=== PATIENT | female | born 1995 | race Caucasian/White ===

== ENCOUNTER → 2017-12-25 08:53 | Outpatient (CLI) | payer OTHER, SELFPAY ==
[2017-12-30 08:58] LABS: HPV APTIMA, High Risk Negative (Negative)
== END ==
PROVIDERS: Family Provider Family Medicine; PCP Family Medicine; Visit Provider Obstetrics & Gynecology
DX: Z12.4 Encounter for screening for malignant neoplasm of cervix (principal)
CPT/HCPCS: 88175; G0145

== ENCOUNTER → 2019-01-06 16:00 | Outpatient (CLI) | payer OTHER, SELFPAY ==
[2019-01-09 10:57] LABS: HPV APTIMA, High Risk Negative (Negative)
== END ==
PROVIDERS: Visit Provider Obstetrics & Gynecology
DX: Z12.4 Encounter for screening for malignant neoplasm of cervix (principal)
CPT/HCPCS: 88175; G0145

== ENCOUNTER → 2019-11-03 16:00 | Outpatient (CLI) | payer OTHER, SELFPAY ==
[2017-11-08 19:38] VITALS: BMI 34.7
[2019-11-04 12:45] LABS: Chlamydia Trachomatis by PCR Negative (Negative); Neisserai gonorrhoeae by PCR Negative (Negative); Probe Check PASS; Sample Adequacy Control PASS; Specimen Processing Control PASS
== END ==
PROVIDERS: Visit Provider Obstetrics & Gynecology
DX: Z11.3 Encounter for screening for infections with a predominantly sexual mode of transmission (principal)
CPT/HCPCS: 87491; 87591

== ENCOUNTER → 2020-06-07 15:40 | Outpatient (CLI) | payer OTHER, SELFPAY ==
[2017-11-08 19:38] VITALS: BMI 34.7
== END ==
PROVIDERS: Visit Provider Obstetrics & Gynecology
DX: Z36.85 Encounter for antenatal screening for Streptococcus B (principal)
CPT/HCPCS: 87081

== ENCOUNTER 2020-06-19 02:07 | Inpatient (IN) | payer OTHER, SELFPAY ==
[2017-11-08 19:38] VITALS: BMI 34.7
[2020-06-19] VITALS (42 sets, daily range): BP systolic 95–137; BP diastolic 53–79; PULSE 71–124; RESP 16–18; TEMP 36.3–37.1; O2SAT 96–100; BMI 36.3
[2020-06-19 02:09] LABS: ROM Internal Control Test YES-OK TO RESULT pt. (Internal QC); ROM Patient Test POSITIVE (Negative)
[2020-06-19] MEDS: Lactated Ringers 500 ML 999 ML IV (02:37)
[2020-06-19 03:01] LABS: Absolute Lymphocyte Count 2.33 X10^3/uL (0.83-4.51); Absolute Neutrophil Count 12.2 X10^3/uL (2.0-7.7); Basophil# 0.05 X10^3/uL; Basophil% 0.3 % (0-1); Eosinophil# 0.14 X10^3/uL; Eosinophils% 0.9 % (0-5); Hematocrit 36.8 % (37-47); Hemoglobin 11.3 g/dL (12.0-15.0); Lymphocyte # 2.33 X10^3/ul (4.0); Lymphocyte % 14.8 % (19-41); Mean Corp Hgb Conc 30.7 g/dL (32-36); Mean Corpuscular Hgb 24.9 pg (27.0-32.0); Mean Corpuscular Volume 81.1 fL (81-99); Mean Platelet Vol. 9.6 fl (6.2-12.0); Monocyte# 0.93 X10^3/uL; Monocyte% 5.9 % (0-10); NRBC Flagged by Analyzer 0 % (0-5); Neutrophil # 12.18 X10^3/uL (2.7-7.7); Neutrophil % 77.4 % (47-70); Platelet Count 298 K/mm3 (150-450); RBC Distribution Width CV 14.2 % (11.6-14.6); RBC Distribution Width SD 40.9 fl (35.1-43.9); Red Blood Count 4.54 M/mm3 (4.2-5.4); White Blood Count 15.7 K/mm3 (4.4-11.0)
[2020-06-19] MEDS: Lactated Ringers 1,000 ML 200 ML IV ×2 (03:07→08:18)
[2020-06-19] MEDS: fentaNYL-bupivacaine (epidural) 100 ML BAG EPIDURAL ×2 (03:29→08:17)
[2020-06-19] MEDS: Ondansetron 4 MG/2 ML Vial IV (03:54)
[2020-06-19] MEDS: Oxytocin 30 units/NS 500 ml 30 UNITS/500 ML IV.SOLN IV (06:57)
--- NOTE | 2020-06-19 09:04 | PCM.HPOB.BLA ---
History and Physical Date of Admission: 06/19/20 CC: leakage of fluid Subjective: 25yo at 38wk/4d arrives with leakage of clear fluid around midnight. Denies VB, CP, SOB, LENTZ, Visual changes, RUQ pain. States good movement. PRIOR DELIVERY HISTORY DEL DATE GEST LAB WT LB WT OZ TYPE ANES LABOR TX Nov 14 41 18 7 0 Vag Epidural No PAST #1: Date of :.................. 11/09/17 Gestation Weeks:................ 41 Length of labor(hours):......... 18 Sex:............................ M Weight-lbs:............... 7 Weight-oz:................ 0 Type of Delivery:............... Vag Type of Anesthesia:............. Epidural Place of Delivery:.............. [facility] Treatment of Labor?:.... 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 Illicit Drug Use - None Sexual Activity - Spouse-Sig Other Name - Luis Davis Spouse-Sig Other Occupation - [employer] Children Name(s) - Alistair(18) REVIEW OF SYSTEMS: GENERAL - Denies fever, or chills SKIN - Denies rash, new skin lesions, or change in moles EYES - Denies blurred vision, or change in visual acuity EARS - Denies ear pain, or difficulty hearing NOSE - Denies nasal congestion, discharge, or bleeding MOUTH - Denies sore throat, or difficulty swallowing NECK - Denies pain or swelling RESPIRATORY - Denies shortness of breath, cough, wheezing CARDIOVASCULAR - Denies palpitations, chest pain, orthopnea, PND, peripheral edema, syncope or claudication GASTROINTESTINAL - Denies nausea, vomiting, diarrhea, constipation, Denies abdominal pain, melena and or bright red blood GENITOURINARY - Denies dysuria, frequency of urination, urgency, or hesitancy MUSCULOSKELETAL - Denies joint or muscle pain, or back pain NEUROLOGICAL - Denies localized numbness, weakness, or tingling PSYCHIATRIC - Denies depression, anxiety, substance abuse or suicide attempts ENDOCRINE - Denies heat or cold intolerance, weight loss or gain, increasing thirst HEMATO-IMMUNOLOGIC - Denies easy bruising, bleeding, oral ulcerations or recurrent infections PHYSICAL EXAMINATION General Appearence: 25 yo female in no acute distress Vital Signs: AF, VSS Heart: RRR without rubs or gallops Lungs: CTA x 2 Breasts: deferred Abdomen: gravid Pelvis: Cervix: c/th/h per nursing Presentation: cephalic Fetus: Movement: present Heart: present Labs for : RICHARD DAVIS CULTURE, GROUP B STREPTOCOCCUS 06/07/20 NOTE Original Ordering Provider: Kami Coker Comments: VAGINAL/RECTAL NICKY Culture Group B Beta Streptococcus is not isolated. GLUCOSE TOLERANCE-3 HOUR 04/11/20 NOTE Original Ordering Provider: KAMI COKER GLUCOSE TOLERANCE-3 HOUR 3 HOUR GLUCOSE TOLERANCE Reference Range BLOOD Adult(non) Adult() FASTING _84 mg/dl <100 mg/dL 95 mg/dL 04/11/20.1523.WKK. 1 HOUR _125.9___ mg/dl 70-115 mg/dL 180 mg/dL 04/11/20.1523.WKK. 2 HOUR _84.8____ mg/dl <140 mg/dL 155 mg/dL 04/11/20.1523.WKK. 3 HOUR _53.7____ mg/dl 70-115 mg/dL 140 mg/dL 04/11/[id number].WKK. GLUCOSE CHALLENGE 50GM 1 HOUR 04/05/20 NOTE Original Ordering Provider: KAMI COKER GLUCOSE CHALLENGE 50GM 1 HOUR GLUCOSE CHALLENGE 50 GMS 1 HOUR GLUCOSE 1HR 150 mg/dl 70 - 140 H CBC + DIFF 04/05/20 NOTE Original Ordering Provider: KAMI COKER CBC + DIFF CBC-COMPLETE BLOOD COUNT WBC 12.5 x 10EE3/UL 4.5 - 10.8 H RBC 4.16 x 10EE6/UL 4.10 - 5.30 HEMOGLOBIN 11.3 g/dl 12.0 - 16.0 L HEMATOCRIT 34.1 % 34.0 - 46.0 MCV 82 fl 80 - 99 MCH 27 pg 27 - 33 MCHC 33 X10 3 32 - 36 RDW/CV 13.6 % 12.0 - 15.6 PLATELET 342 x10EE3/UL 150 - 450 MPV 8.3 fl 6.6 - 10.5 AUTOMATED DIFFERENTIAL NEUT % 78.9 % 46.0 - 76.0 H LYMPH % 15.0 % 20.0 - 45.0 L MONOS % 4.4 % 0.0 - 10.0 EO % 1.2 % 0.0 - 7.0 BASO % 0.5 % 0.0 - 2.0 LYMPH # 1.90 x10EE3/UL 0.80 - 2.80 NEUT # 9.90 x10EE3/UL 1.50 - 7.10 H MONO # 0.50 x10EE3/UL 0.20 - 1.00 EO # 0.20 x10EE3/UL 0.00 - 0.50 BASO # 0.10 x10EE3/UL 0.00 - 0.10 MANUAL DIFF N/A MORPHOLOGY N/A HEPATITIS C AB IA W/CONFIRM [CCL] 12/15/19 NOTE Original Ordering Provider: KAMI COKER HEPATITIS C AB IA Negative NEGAT 12/15/19 NOTE Original Ordering Provider: KAMI COKER RPR Non Reactive NR HEPATITIS B SURF. AG Negative NEGAT RUBELLA IGG AB, QUAL Positive NEGAT A Sample is considered positive for IgG antibodies to rubella virus. A positive result indicates previous exposure to Rubella virus or vaccination. RUBELLA IGG AB 12.40 Indexlue Index values are interpreted as follows: Negative specimens <0.90 Equivocol specimens 0.90 to 0.99 Positive specimens >0.99 The magnitude of the measured result is not indicative of the amount of antibody present. BB TYPE 12/15/19 NOTE Original Ordering Provider: KAMI COKER BB TYPE TYPE, Rh, AND SCREEN ABO A RH POS ANTIBODY SCR negative TSH 12/15/19 NOTE TSH 1.22 uIU/ml 0.34 - 5.60 CBC + DIFF 12/15/19 NOTE Original Ordering Provider: KAMI COKER CBC + DIFF CBC-COMPLETE BLOOD COUNT WBC 12.5 x 10EE3/UL 4.5 - 10.8 H RBC 4.74 x 10EE6/UL 4.10 - 5.30 HEMOGLOBIN 13.0 g/dl 12.0 - 16.0 HEMATOCRIT 39.5 % 34.0 - 46.0 MCV 83 fl 80 - 99 MCH 27 pg 27 - 33 MCHC 33 X10 3 32 - 36 RDW/CV 14.7 % 12.0 - 15.6 PLATELET 373 x10EE3/UL 150 - 450 MPV 8.8 fl 6.6 - 10.5 AUTOMATED DIFFERENTIAL NEUT % 67.4 % 46.0 - 76.0 LYMPH % 22.8 % 20.0 - 45.0 MONOS % 7.2 % 0.0 - 10.0 EO % 2.1 % 0.0 - 7.0 BASO % 0.5 % 0.0 - 2.0 LYMPH # 2.90 x10EE3/UL 0.80 - 2.80 H NEUT # 8.40 x10EE3/UL 1.50 - 7.10 H MONO # 0.90 x10EE3/UL 0.20 - 1.00 EO # 0.30 x10EE3/UL 0.00 - 0.50 BASO # 0.10 x10EE3/UL 0.00 - 0.10 MANUAL DIFF N/A MORPHOLOGY N/A CT/NG [facility] BY PCR 11/03/19 NOTE Original Ordering Provider: Kami HICKEY [facility] PCR Negative Negative NG BY PCR Negative Negative Impression /Plan: SROM at term -Admit L&D -Pitocin if no changed in 2 hours -GBS neg -Routine orders -Anesthesia to see
[2020-06-19] MEDS: Oxytocin 30 units/NS 500 ml 30 UNITS/500 ML IV.SOLN 334 UNITS IV (10:40)
--- NOTE | 2020-06-19 10:54 | OP.PCM_ITS ---
Vaginal Delivery Maternal Presentation: Spontaneous Rupture of Membranes Amniotic Membrane Rupture Type: Spontaneous at home Rupture of Membrane time: 0000 Amniotic Fluid Description: Clear Final ALONZO: 06/29/20 Final ALONZO Source: US <20 weeks Gestational age: 38 Weeks and 4 Days Description of Procedure: Normal spontaneous vaginal delivery of a viable male infant, vertex. meconium noted. Head and shoulders delivered with ease. Cord cut and clamped. Baby handed off to ear machine operator. Placenta delivered via cord traction and fundal massage. Second-degree laceration noted and repaired in typical fashion. EBL 250 cc Apgars 8/9
--- NOTE | 2020-06-19 10:58 | DCINST_ITS ---
<Wilfrid Grover - Last Filed: 06/19/20 10:58> Discharge Activity: Return to Normal Activity, May Shower Weight Bearing Status: Weight bearing as tolerated Call your doctor if your incision/area has: Sudden Increased Bleeding, Foul Smelling Discharge Call your doctor if you observe: Fever of 101 or Higher, Shortness of breath, Chest pain Additional Instructions: If you experience any of the following, contact your healthcare provider. * Bleeding that soaks a pad every hour for 2 hours * Fever 100.4 or higher * Unrelieved incision or abdominal pain * Swelling, redness, discharge or bleeding from your incision or episiotomy site * Your incision begins to separate * Problems urinating (including inability to urinate or burning while urinating). * Visual changes * Severe headache * Flu-like symptoms * Pain or redness in one of both of your breasts * Pain, warmth, tenderness or swelling in your legs, especially the calf area * Frequent nausea and vomiting * Symptoms of depression or anxiety If you experience any of the following, call 911 or go to the nearest Emergency Room. * Chest pain * Problems breathing * Seizure activity * Partial or complete paralysis of a body part, slurred speech, weakness or drooping of the face, or a sudden inability to walk or hold your balance Allergies/Adverse Reactions: Allergies No Known Allergies Allergy (Verified 06/19/20 02:29) Medications to take at Discharge Vits [Prenatabs FA ] 1 tablet PO DAILY 10/11/17 Ibuprofen [Motrin] 800 mg PO TID PRN PRN #30 tab 11/09/17 Ferrous Gluconate 325 mg PO BIDCM #60 tab 11/10/17 Please Follow Up With: Fabián Galvez MD When: 6 weeks Primary Care Physician: Care Physician,No Primary [Primary Care Provider] - Test Results: Test results from this visit will be discussed in further detail at your follow- up appointment, if applicable. <Khloe Grover - Last Filed: 06/20/20 06:54> Additional Instructions: If you experience any of the following, contact your healthcare provider. * Bleeding that soaks a pad every hour for 2 hours * Fever 100.4 or higher * Unrelieved incision or abdominal pain * Swelling, redness, discharge or bleeding from your incision or episiotomy site * Your incision begins to separate * Problems urinating (including inability to urinate or burning while urinating). * Visual changes * Severe headache * Flu-like symptoms * Pain or redness in one of both of your breasts * Pain, warmth, tenderness or swelling in your legs, especially the calf area * Frequent nausea and vomiting * Symptoms of depression or anxiety If you experience any of the following, call 911 or go to the nearest Emergency Room. * Chest pain * Problems breathing * Seizure activity * Partial or complete paralysis of a body part, slurred speech, weakness or drooping of the face, or a sudden inability to walk or hold your balance Test Results: Test results from this visit will be discussed in further detail at your follow- up appointment, if applicable.
[2020-06-19] MEDS: Acetaminophen 500 MG Tablet 1000 MG PO ×2 (11:50→21:04)
[2020-06-19] MEDS: Senna/Docusate Sodium 1 Tablet PO (16:28)
[2020-06-19] MEDS: Ibuprofen 600 MG Tablet PO (19:53)
[2020-06-20 03:06] VITALS: BP 101/60; PULSE 69; RESP 14; TEMP 36.5
[2020-06-20] MEDS: Ibuprofen 600 MG Tablet PO (04:39)
--- NOTE | 2020-06-20 06:51 | PCM.PN.OB ---
Subjective: PPD#1 Objective: Patient feeling well without complaints. Repair less tender than prior delivery. Bleeding light. . - Physical Exam Vitals/I&O's: Vital Signs Temp Pulse Resp BP Pulse Ox 97.7 F L 69 14 101/60 99 06/20/20 03:06 06/20/20 03:06 06/20/20 03:06 06/20/20 03:06 06/19/20 03:37 Oxygen Delivery Method Room Air Weight: 96.162 kg Body Mass Index (BMI) 36.3 Intake and Output for Last 24 Hours 06/18/20 06/19/20 06/20/20 23:59 23:59 23:59 Intake Total 2426.86 / 2426.86 Output Total 900 / 900 Balance 1526.86 / 1526.86 General: Alert, Oriented x3, Cooperative, No apparent distress HEENT: Atraumatic, Normocephalic Lungs: Normal air movement Cardiovascular: Regular rate Abdomen: Soft, Non Tender, Non-Distended - Uterus 2cm below umbilicus Extremities: No clubbing, No edema Neurological: Cranial nerves II-XII grossly intact, Neuro grossly intact Psych/Mental Status: Normal Affect, Appropriate Current Medications Acetaminophen (Tylenol) 1,000 mg PO Q8H PRN PRN PRN Reason: Pain Score 1-10/10 Last Admin: 06/19/20 21:04 Dose: 1,000 mg Documented by: Bisacodyl (Dulcolax) 10 mg RECTAL UD PRN PRN Reason: If no BM Dibucaine (Dibucaine) 1 applic TOPICAL TID PRN PRN; Protocol PRN Reason: Discomfort Hydrocortisone (Hytone) 1 applic TOPICAL TID PRN PRN; Protocol PRN Reason: Discomfort Ibuprofen (Motrin) 600 mg PO Q6H PRN PRN PRN Reason: Pain Score 1-10/10 Last Admin: 06/20/20 04:39 Dose: 600 mg Documented by: Methylergonovine Maleate (Methergine) 0.2 mg IM X1 PRN PRN Reason: Excess bleeding/uterine atony Ondansetron HCl (Zofran) 4 mg IV Q4H PRN PRN PRN Reason: Nausea Senna/Docusate Sodium (Senokot-S, Kari-Colace) 1 - 2 tablet PO DAILY PRN PRN PRN Reason: Constipation Last Admin: 06/19/20 16:28 Dose: 2 tablet Documented by: Simethicone (Mylicon) 80 mg PO PCHS PRN PRN Reason: Indigestion/Stomach pain Sodium Chloride () 5 - 15 ml IV UD PRN PRN Reason: SALINE FLUSH Medical Necessity - Tobacco Use Smoking Status: Former smoker Assessment/Plan All Active Problems Spontaneous vaginal delivery (Acute) Gallstones without obstruction of gallbladder (Acute) Gallstones (Acute) 25 yo PPD#1 s/p normal spontaneous vaginal delivery. -Doing well today. . Desires homegoing. -Discharge home this afternoon. -F/u 6w visit or sooner if needed.
[2020-06-20 08:25] VITALS: BP 111/71; PULSE 86; RESP 16; TEMP 36.4
[2020-06-20 14:00] VITALS: BP 110/72; PULSE 75; RESP 16; TEMP 36.6
== END 2020-06-20 15:45 | disposition home or self-care (01) | DRG 807 ==
LOC: WPOUT 02:12 → WP 02:12
PROVIDERS: Admitting Provider Obstetrics & Gynecology; Visit Provider Obstetrics & Gynecology
DX: O70.1 Second degree perineal laceration during delivery (principal); Z37.0 Single live birth; O77.0 Labor and delivery complicated by meconium in amniotic fluid; Z3A.38 38 weeks gestation of pregnancy
CPT/HCPCS: 59025; 59050; 84112; 85025; 86850; 86900; 86901; 99218; J7120; G0378; J2405

== ENCOUNTER → 2021-03-07 | Outpatient (CLI) | payer OTHER, SELFPAY ==
[2020-06-19 01:40] VITALS: BMI 36.3
[2021-03-10 19:43] LABS: HPV Reflexed? NOT INDICATED
== END | disposition home or self-care (01) ==
LOC: LABSPEC 03-08 09:43
PROVIDERS: Visit Provider Obstetrics & Gynecology
DX: Z12.4 Encounter for screening for malignant neoplasm of cervix (principal)
CPT/HCPCS: 88175; G0145

== ENCOUNTER 2021-12-20 16:58 | Emergency (ER) | payer OTHER, SELFPAY ==
[2021-12-20 16:59] VITALS: BP 118/81; PULSE 74; RESP 16; TEMP 36.1; O2SAT 100; BMI 32.5
[2021-12-20 17:22] LABS: Absolute Lymphocyte Count 3.07 X10^3/uL (0.83-4.51); Absolute Neutrophil Count 4.5 X10^3/uL (2.0-7.7); Basophil# 0.05 X10^3/uL; Basophil% 0.6 % (0-1); Eosinophil# 0.27 X10^3/uL; Eosinophils% 3.1 % (0-5); Hematocrit 41.9 % (37-47); Hemoglobin 13.8 g/dL (12.0-15.0); Lymphocyte # 3.07 X10^3/ul (0.83-4.51); Lymphocyte % 35.5 % (19-41); Mean Corp Hgb Conc 32.9 g/dL (32-36); Mean Corpuscular Hgb 28.9 pg (27.0-32.0); Mean Corpuscular Volume 87.7 fL (81-99); Mean Platelet Vol. 10.2 fl (6.2-12.0); Monocyte# 0.77 X10^3/uL; Monocyte% 8.9 % (0-10); NRBC Flagged by Analyzer 0 % (0-5); Neutrophil # 4.46 X10^3/uL (2.7-7.7); Neutrophil % 51.6 % (47-70); Platelet Count 353 K/mm3 (150-450); RBC Distribution Width CV 12.8 % (11.6-14.6); Red Blood Count 4.78 M/mm3 (4.2-5.4); White Blood Count 8.7 K/mm3 (4.4-11.0)
[2021-12-20 17:34] LABS: Anion Gap 5 (5-15); BUN 11 mg/dL (7-18); BUN/Creat Ratio 13.5 RATIO (10-20); Calcium,Total 9.3 mg/dL (8.5-10.1); Chloride 108 mmol/L (98-107); Creatinine, Serum 0.82 mg/dL (0.55-1.02); EST Glomerular Filtration Rate 89 mL/min (>60); Est Glom Filt Rate - Afr Amer 107 mL/min (>60); Estimated Creatinine Clearance 88.99 ml/min; Glucose 106 mg/dL (74-106); Potassium 3.7 mmol/L (3.5-5.1); Sodium Level 140 mmol/L (136-145)
[2021-12-20 18:24] LABS: Internal QC Validated? YES +Cl - CLEAR BKGD; Pregnancy, Serum, hCG Quali. NEGATIVE Negative
--- NOTE | 2021-12-20 19:13 | CT_ITS ---
STUDY: CT ABDOMEN AND PELVIS WITH CONTRAST REASON FOR EXAM: Female, 26 years old. llq pain, had a negative hcg at her ob today RADIATION DOSAGE (If Supplied By Facility): CTDIvol = ( 16.23 ) mGy, DLP = ( 959.26 ) mGycm TECHNIQUE: Transaxial images were obtained from the dome of the diaphragm to the symphysis pubis without oral contrast. IV 100mL Isovue-370 was administered. Sagittal and coronal images were reconstructed. Individualized dose optimization techniques were used for this CT. COMPARISON: None. FINDINGS: The visualized lung bases are unremarkable. The visualized portions of the heart are within normal limits. Normal liver. There are surgical clips in the gallbladder fossa consistent with a prior cholecystectomy. Normal spleen. Normal pancreas. Normal bilateral adrenal glands. Normal right kidney. Normal left kidney. Normal visualized stomach. Normal small intestine. Mild pericolonic inflammatory stranding is present around the descending colon/sigmoid colon junction of the left lower quadrant. These findings are consistent with acute colitis not otherwise specified. No free air or free fluid is present. Normal remaining colonic loops. The appendix is visualized and appears normal. Normal abdominal aorta. Normal inferior vena cava. Normal retroperitoneum. Normal urinary bladder. Unremarkable uterus and adnexa. Normal abdominal wall. Normal osseous structures. CT/Abdomen/Pelvis W IV Cont ONLY IMPRESSION: 1. Mild pericolonic inflammatory stranding is present around the descending colon/sigmoid colon junction of the left lower quadrant. These findings are consistent with acute colitis not otherwise specified. No free air or free fluid is present. Normal remaining colonic loops. Electronically Signed: Fredis Fosetr MD at 20:33 EST ,
[2021-12-20 20:36] LABS: AST(SGOT) 22 U/L (15-37); Alanine Aminotransfer ALT/SGPT 25 U/L (13-56); Albumin, Serum 3.5 g/dL (3.2-5.0); Alkaline Phosphatase 67 U/L (45-117); Globulin 4.6 g/dL (2.2-4.2); Lipase 132 U/L (73-393); Protein, Total 8.1 g/dL (6.4-8.2)
--- NOTE | 2021-12-20 20:51 | EX.ED.DYSGE1 ---
HPI History of Present Illness Chief Complaint: Abd Pain Informant: patient Onset/Context/Timing Onset: Days Location: LLQ Current Severity: Moderate Worsened by: none Relieved by: none Narrative Narrative: Patient presents for left lower quadrant pain. She never had this before. She saw her OB who did an ultrasound and this was unremarkable. She had a negative hCG and urinalysis. She was sent to the ED for a CT. No history of urinary symptoms, kidney stones. 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 No other GI symptoms. No fevers. No bleeding. Prior similar symptoms: No Recent Illness/Hospitalization: No PFSH PFSH Home Medications vit,[id number] [Prenatabs FA] 1 tab PO DAILY 10/11/17 [History Last Taken 11/08/17 09:00 1] acetaminophen 1,000 mg PO Q8H PRN PRN tab 06/20/20 [Rx Last Taken Unknown] ibuprofen 600 mg PO Q6H PRN PRN tab 06/20/20 [Rx Last Taken Unknown] sennosides-docusate sodium 1 - 2 tab PO DAILY PRN PRN tab 06/20/20 [Rx Last Taken Unknown] ciprofloxacin HCl [Cipro] 500 mg PO BID #20 tab 12/20/21 [Rx Last Taken Unknown] metronidazole 500 mg PO Q8H #30 tab 12/20/21 [Rx Last Taken Unknown] Allergy/AdvReac Type Severity Reaction Status Date / Time No Known Allergies Allergy Verified 12/20/21 17:03 Surgical History (Updated 12/20/21 @ 19:01 by Karey Miramontes) H/O reconstruction of anterior cruciate ligament tear Hx of cholecystectomy Social History Smoking Status: Former smoker ROS ROS ED Constitutional Constitutional ED: Denies chills or fever(s) Eyes Eyes: Denies change in vision ENT ENT ED: Denies ear pain Cardiovascular Cardiovascular: Denies chest pain Respiratory/Chest Respiratory/Chest: Denies dyspnea Gastrointestinal Gastrointestinal: Reports abdominal pain; Denies constipation, diarrhea, nausea or vomiting Genitourinary Genitourinary ED: Denies dysuria, hematuria or urinary frequency Musculoskeletal Musculoskeletal: Denies back pain Integumentary Denies rash Neurologic Neurologic: Denies headache(s) Psychiatric Psychiatric: Denies depression Endocrine Endocrinology: Denies polyuria Allergic/Immunologic Allergic/Immunologic ED: Denies urticaria EXAM Physical Exam Const Vital Signs: 12/20/21 16:59 Temperature 97.0 F L Temperature Source Temporal Pulse Rate 74 Respiratory Rate 16 Blood Pressure 118/81 H Blood Pressure Mean 93 Pulse Ox 100 Oxygen Delivery Method Room Air Positive well nourished and well developed General Appearance ED: well developed HEENT Negative for trauma Eyes EOMs intact bilaterally Neck supple Resp normal respiratory effort and clear to auscultation bilaterally Cardio regular rate and regular rhythm GI normal to inspection, nondistended, normoactive bowel sounds and non-tender Palpation: soft Back/Spine no CVA tenderness Extremity normal to inspection Neuro oriented x3 Sensorium / Orientation: alert Psych mental status grossly normal Skin no rashes or lesions noted MDM MDM MDM Narrative Medical decision making narrative: Patient declined pain medicine. She has left lower quadrant pain. She had an OB ultrasound which was unremarkable and was referred to the ED for a CT. Her hCG and urine were normal at the office. Labs were all fairly unremarkable. Her CT showed stranding consistent with mild colitis. Patient has no history of inflammatory bowel disease. I have low suspicion for ischemia. I suspect this may be infectious. She will be covered with Cipro and Flagyl. Follow-up with primary care. Return for bleeding, fevers, worsening symptoms, or any other concerns, otherwise follow-up with primary care. She was advised she may need further evaluation as an outpatient. Impression #1 colitis Lab Data Attestation: I reviewed the patient's lab results. Labs: Laboratory Results - last 24 hr 12/20/21 12/20/21 12/20/21 17:10 17:10 17:10 WBC 8.7 RBC 4.78 Hgb 13.8 Hct 41.9 MCV 87.7 MCH 28.9 MCHC 32.9 RDW Std Deviation 41.0 RDW Coeff of Bereket 12.8 Plt Count 353 MPV 10.2 Immature Gran % (Auto) 0.300 Neut % (Auto) 51.6 Lymph % (Auto) 35.5 Hutchinson % (Auto) 8.9 Eos % (Auto) 3.1 Baso % (Auto) 0.6 Absolute Neuts (auto) 4.5 Absolute Lymphs (auto) 3.07 Nucleated RBC % 0 Sodium 140 Potassium 3.7 Chloride 108 H Carbon Dioxide 27.0 Anion Gap 5 BUN 11 Creatinine 0.82 Estim Creat Clear Calc 88.99 Est GFR (MDRD) Af Amer 107 Est GFR (MDRD) Non-Af 89 BUN/Creatinine Ratio 13.5 Glucose 106 Calcium 9.3 Total Bilirubin Direct Bilirubin AST ALT Alkaline Phosphatase Total Protein Albumin Globulin Lipase Serum , Qual NEGATIVE 12/20/21 17:10 WBC RBC Hgb Hct MCV MCH MCHC RDW Std Deviation RDW Coeff of Bereket Plt Count MPV Immature Gran % (Auto) Neut % (Auto) Lymph % (Auto) Hutchinson % (Auto) Eos % (Auto) Baso % (Auto) Absolute Neuts (auto) Absolute Lymphs (auto) Nucleated RBC % Sodium Potassium Chloride Carbon Dioxide Anion Gap BUN Creatinine Estim Creat Clear Calc Est GFR (MDRD) Af Amer Est GFR (MDRD) Non-Af BUN/Creatinine Ratio Glucose Calcium Total Bilirubin 0.50 Direct Bilirubin 0.10 AST 22 ALT 25 Alkaline Phosphatase 67 Total Protein 8.1 Albumin 3.5 Globulin 4.6 H Lipase 132 Serum , Qual Radiography Diagnostic Testing: Clinical Impression(s) from Imaging Studies Abdomen/Pelvis CT 12/20/21 19:13 IMPRESSION: 1. Mild pericolonic inflammatory stranding is present around the descending colon/sigmoid colon junction of the left lower quadrant. These findings are consistent with acute colitis not otherwise specified. No free air or free fluid is present. Normal remaining colonic loops. Electronically Signed: Fredis Foster MD at 20:33 EST , Discharge Plan Triage Chief Complaint: Abd Pain ED Provider: Peter Vázquez Dx/Rx/DC Orders Instructions: ED Understanding Colitis Prescriptions: New ciprofloxacin HCl [Cipro] 500 mg tablet 500 mg PO BID Qty: 20 RF: 0 metronidazole 500 mg tablet 500 mg PO Q8H Qty: 30 RF: 0 No Action vit,[id number] [Prenatabs FA] 1 TABLET tablet 1 tab PO DAILY RF: 0 sennosides-docusate sodium 1 TABLET tablet 1 - 2 tab PO DAILY PRN PRN (Reason: Constipation ) RF: 0 acetaminophen 500 MG tablet 1,000 mg PO Q8H PRN PRN (Reason: Pain Score 1-10/10) RF: 0 ibuprofen 600 MG tablet 600 mg PO Q6H PRN PRN (Reason: Pain Score 1-10/10) RF: 0 Primary Care Provider: Candy Kc NP Referrals: Candy Kc NP, [facility]ER-[facility] [Primary Care Provider] - Disposition Disposition: Home, Self Care
[2021-12-20] MEDS: metroNIDAZOLE 500 MG Tablet PO (21:16)
[2021-12-20] MEDS: Ciprofloxacin 500 MG Tablet PO (21:16)
== END 2021-12-20 23:59 | disposition home or self-care (01) ==
PROVIDERS: Emergency Provider Emergency Medicine; PCP Nurse Practitioner Family; Visit Provider Emergency Medicine
DX: K52.9 Noninfective gastroenteritis and colitis, unspecified (principal); Z87.891 Personal history of nicotine dependence
CPT/HCPCS: 74177; 80048; 80076; 83690; 84703; 85025; 99284; Q9967; A4216